=== PATIENT | male | born 1995 | race Caucasian/White ===

== ENCOUNTER 2022-04-19 18:20 | Emergency (ER) | payer OTHER ==
--- NOTE | 2022-04-19 20:06 | RAD REPORT ---
EXAM DESCRIPTION: CT - Head Brain Wo Cont - 04/19/2022 7:39 pm CLINICAL HISTORY: confusion, headache COMPARISON: No comparisons TECHNIQUE: Axial 5 mm thick images of the head were obtained without IV contrast. All CT scans are performed using dose optimization technique as appropriate and may include automated exposure control or mA/KV adjustment according to patient size. FINDINGS: No intracranial hemorrhage, mass, edema or shift of mid-line structures. No acute infarcti on changes seen. No abnormal extra-axial fluid collections. Ventricles are normal. Mastoid air cells and visualized portions of the paranasal sinuses are clear. No acute bony findings. IMPRESSION: Negative non-contrast CT head examination.
[2022-04-19 20:12] LABS: Absolute Lymphocytes (CBC) 3.1 K/uL (0.7-4.9); Hematocrit 48.2 % (39.6-49.0); Lymphocytes % 35.5 % (15.3-44.8); MCV 87.8 fL (80-100); MPV 7.3 fL (7.6-11.3); RBC Red Blood Cell Count 5.49 M/uL (4.33-5.43)
[2022-04-19 20:33] LABS: BUN Blood Urea Nitrogen 22 mg/dL (7-18); Bicarbonate 28 mmol/L (21-32); Glomerular Filtration Rate 64 ml/min (=/>90); Glucose Level 101 mg/dL (74-106); Potassium 3.7 mmol/L (3.5-5.1); Sodium Level 139 mmol/L (136-145)
[2022-04-19 20:37] LABS: Troponin High Sensitivity < 3.0 pg/mL (<58.9)
[2022-04-19] MEDS ORDERED: NA CHLORIDE 0.9% 1,000 ML ONE (21:02)
[2022-04-19 21:42] LABS: Urine Blood Negative (Negative); Urine Glucose Negative (Negative); Urine Protein Negative (Negative); Urine Specific Gravity >=1.030 (1.005-1.030)
--- NOTE | 2022-04-19 22:55 | ER ---
Nurse's Notes [facility] Name: Eric Gudino Age: 26 yrs Sex: Male : 1995 Arrival Date: 04/19/2022 Time: 18:22 Bed 1 Private MD: Diagnosis: Dehydration Presentation: 04/19 18:30 Chief complaint: Patient states: headaches, dizziness, weakness/disorientated x2 weeks. [facility] Coronavirus screen: Vaccine status: Patient reports being unvaccinated. Client denies travel out of the [place] in the last 14 days. Ebola Screen: Patient negative for fever greater than or equal to 101.5 degrees Fahrenheit, and additional compatible Ebola Virus Disease symptoms Patient denies exposure to infectious person. Patient denies travel to an Ebola-affected area in the 21 days before illness onset. Initial Sepsis Screen: Does the patient meet any 2 criteria? No. Patient's initial sepsis screen is negative. Does the patient have a suspected source of infection? No. Patient's initial sepsis screen is negative. Risk Assessment: Do you want to hurt yourself or someone else? Patient reports no desire to harm self or others. Onset of symptoms was April 2022. 18:30 Method Of Arrival: Ambulatory [facility] 18:30 Acuity: VÍCTOR 3 5 Triage Assessment: 18:34 General: Appears in no apparent distress. well groomed, well developed, Behavior is 5 calm, cooperative, appropriate for age. Pain: Denies pain. Historical: - Allergies: 18:34 No Known Allergies; [facility] - PMHx: 18:34 heartburn; [facility] - Immunization history:: Adult Immunizations up to date. - Social history:: Smoking status: Patient denies any tobacco usage or history of. Screenin:35 Abuse screen: Denies threats or abuse. Denies injuries from another. Nutritional [facility] screening: No deficits noted. Tuberculosis screening: No symptoms or risk factors identified. Fall Risk None identified. Vital Signs: 18:30 BP 134 / 85; Pulse 71; Resp 18; Temp 98.6; Pulse Ox 98% ; Weight 95.25 kg; Height 5 ft. 5 7 in. (170.18 cm); Pain 0/10; 18:30 Body Mass Index 32.89 (95.25 kg, 170.18 cm) jh5 ED Course: 18:22 Patient arrived in ED. mr 18:33 Triage completed. jh5 18:34 Arm band placed on right wrist. [facility] 18:35 Fran Appiah PA is PHCP. [facility] 18:35 Ephraim Valencia DO is Attending Physician. [facility] 19:41 CT Head Brain wo Cont In Process Unspecified. EDMS 20:57 Alina Pierre, RN is Primary Nurse. kd3 21:45 UDS Sent. vc1 22:54 Slim Santiago MD is Referral Physician. jmm 23:08 No provider procedures requiring assistance completed. IV discontinued, intact, kd3 bleeding controlled, No redness/swelling at site. Pressure dressing applied. 23:09 Patient has correct armband on for positive identification. kd3 Administered Medications: 20:57 Drug: NS 0.9% 1000 ml Route: IV; Rate: 1 bolus; Site: right antecubital; kd3 23:09 Follow up: Response: No adverse reaction; IV Status: Completed infusion kd3 Medication: 23:09 VIS not applicable for this client. kd3 Outcome: 22:54 Discharge ordered by . [facility] 23:08 Discharged to home ambulatory. kd3 23:08 Condition: stable 23:08 Discharge instructions given to patient, Instructed on discharge instructions, follow up and referral plans. Demonstrated understanding of instructions, follow-up care, Prescriptions given X 23:09 Patient left the ED. kd3 Signatures: Dispatcher [employer] EDMS Fran Appiah PA PA jmm Julio Bebe mr ElizaldeMariya RN RN [facility] Alina Pierre, KEVIN RN kd3 Isidra Ruffin RN RN vc1
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
[2022-04-20 00:54] LABS: Barbiturates NEGATIVE (NEGATIVE); Benzodiazepines NEGATIVE (NEGATIVE); Cocaine NEGATIVE (NEGATIVE); Methadone NEGATIVE (NEGATIVE); Opiates NEGATIVE (NEGATIVE); Phencyclidine NEGATIVE (NEGATIVE); THC Cannibis NEGATIVE (NEGATIVE)
[2022-04-20 00:55] LABS: METHAMPHETAM ND (NEGATIVE)
[2022-04-20 02:19] VITALS: BP 134/85; TEMP 98.6; O2SAT 98
--- NOTE | 2022-04-20 14:28 | EKG ---
Test Date: 2022-04-19 Test Time: 21:46:02 [employer]: DAWIT MEASUREMENT RESULTS: Intervals: Rate: 62 AL: 142 QRSD: 74 QT: 388 QTc: [address]: P: 24 AL: 142 QRS: 67 T: 25 INTERPRETIVE STATEMENTS: Normal sinus rhythm Septal infarct, age undetermined Abnormal ECG No previous ECG available for comparison Electronically Signed On 04-20-22 14:27:49 CDT by Tejas Thompson
== END 2022-04-19 23:09 | disposition home or self-care (01) ==
LOC: ER 18:20
DX: E86.0 Dehydration (principal)
CPT/HCPCS: 85025; 80048; 36415; 80320; 82550; 81003; 84484; 80307; 70450; J7030; 93005

== ENCOUNTER 2023-06-30 11:32 | Emergency (ER) | payer BC, OTHER ==
--- NOTE | 2023-06-30 12:36 | RAD REPORT ---
EXAM DESCRIPTION: RAD - Ribs Left - 06/30/2023 12:29 pm CLINICAL HISTORY: PAIN COMPARISON: <Comparisons> FINDINGS/IMPRESSION: Possible nondisplaced left posterolateral tenth rib fracture versus overlying s tructures. Correlate with site of pain. No pneumothorax. The lungs are clear bilaterally.
[2023-06-30] MEDS ORDERED: KETOROLAC 30 MG/ML INJ ONE (14:20)
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
[2023-06-30 14:38] VITALS: TEMP 97.3; O2SAT 97
== END 2023-06-30 14:33 | disposition home or self-care (01) ==
LOC: ER 11:32
DX: S22.32XA Fracture of one rib, left side, initial encounter for closed fracture (principal); F17.210 Nicotine dependence, cigarettes, uncomplicated
CPT/HCPCS: 96372; 99284

== ENCOUNTER 2024-11-13 14:18 | Emergency (ER) | payer BC, OTHER ==
[2024-11-13 15:12] LABS: Absolute Eosinophils 0.1 K/uL (0-0.5); Absolute Lymphocytes (CBC) 1.3 K/uL (0.7-4.9); Absolute Monocytes 0.5 K/uL (0.1-1.3); Absolute Neutrophil 5.2 K/uL (1.8-8.0); Basophils % 0.3 % (0-1.3); Eosinophils % 1.9 % (0-4.4); Hemoglobin 16.7 g/dL (13.6-17.9); Lymphocytes % 17.8 % (15.3-44.8); MCH 30.6 pg (27.0-35.0); MCHC 35.5 g/dL (32.0-36.0); MCV 86.4 fL (80-100); MPV 7.7 fL (7.6-11.3); Monocytes % 6.7 % (3.3-12.3); Neutrophils % 73.3 % (41.7-73.7); Nucleated Red Blood Cells % 0.1 % (0-0); Platelets 177 thou/uL (152-406); RBC Red Blood Cell Count 5.44 M/uL (4.33-5.43); Red Cell Distribution Width 13.1 % (12.1-15.2)
[2024-11-13] MEDS ORDERED: ONDANSETRON 4 MG/2 ML VIAL ONE (15:13)
[2024-11-13] MEDS ORDERED: FAMOTIDINE 20 MG/2 ML VIAL IV ONE (15:14)
[2024-11-13] MEDS ORDERED: NA CHLORIDE 0.9% 1,000 ML ONE (15:14)
[2024-11-13 15:35] LABS: Specific Gravity > 1.030 (1.005-1.030); Sqamous Epithelial None Seen /HPF (None Seen); Urine Bacteria <20 /HPF (<20); Urine Bilirubin NEGATIVE (Negative); Urine Blood Negative (Negative); Urine Clarity Clear (Clear); Urine Color Yellow (Yellow); Urine Culture Reflex Order NOT NEEDED; Urine Glucose NEGATIVE (Negative); Urine Ketones NEGATIVE (Negative); Urine Microscopic Reflex YN ORDER UMIC; Urine Mucus Slight /HPF (None Seen); Urine Nitrite NEGATIVE (Negative); Urine Protein 1+ (Negative); Urine RBC <5 /HPF (None Seen); Urine Urobilinogen Normal (Normal); Urine WBC <5 /HPF (<5); Urine Yeast (Budding) Trace /HPF (None Seen); Urine pH 6.5 (5.0-7.0)
[2024-11-13 15:35] LABS: Albumin/Globulin Ratio 1.1 (1.1-1.8); Bilirubin Total 0.5 mg/dL (0.2-1.0); Globulin 3.5 g/dL (2.3-3.5); Protein, Total 7.5 g/dL (6.4-8.2)
--- NOTE | 2024-11-13 15:36 | EDPHYS ---
Physician Documentation [facility] Name: Eric Gudino Age: 29 yrs Sex: Male : 1995 Arrival Date: 11/13/2024 Time: 14:18 Bed 17 Private MD: ED Physician Kam Vital HPI: 11/13 14:44 This 29 yrs old Male presents to ER via Unassigned with complaints of dr5 Nausea/Vomiting. 14:44 The patient presents to the emergency department with nausea, that is mild, vomiting, 1 dr5 times since the onset of symptoms, diarrhea, 2 times today. Onset: The symptoms/episode began/occurred acutely, at 13:30. Possible causes:. Patient is a 29-year-old male with history of GERD coming in with nausea and vomiting that started at 1:30 PM while eating sandwich. Patient reports having 1 episode of vomiting on the way here in EMS and is feeling much better afterwards. Patient denies current abdominal pain or nausea.. Historical: - Home Meds: 14:45 Omeprazole Oral [Active]; dr5 - PMHx: 14:45 Heartburn; dr5 - PSHx: 14:45 wrist - left; dr5 - Immunization history:: Adult Immunizations unknown. - Infectious Disease History:: Denies. - Social history:: Smoking status: Patient denies any tobacco usage or history of. ROS: 14:45 Constitutional: as per hpi dr5 Exam: 14:45 Constitutional: This is a well developed, well nourished patient who is awake, alert, dr5 and in no acute distress. Head/Face: Normocephalic, atraumatic. Eyes: Pupils equal round and reactive to light, extra-ocular motions intact. Lids and lashes normal. Conjunctiva and sclera are non-icteric and not injected. Cornea within normal limits. Periorbital areas with no swelling, redness, or edema. ENT: Nares patent. No nasal discharge, no septal abnormalities noted. Tympanic membranes are normal and external auditory canals are clear. Oropharynx with no redness, swelling, or masses, exudates, or evidence of obstruction, uvula midline. Mucous membranes moist. Chest/axilla: Normal chest wall appearance and motion. Nontender with no deformity. No lesions are appreciated. Cardiovascular: Regular rate and rhythm with a normal S1 and S2. Normal PMI, no JVD. No pulse deficits. Respiratory: Lungs have equal breath sounds bilaterally, clear to auscultation. No rales, rhonchi or wheezes noted. No increased work of breathing, no retractions or nasal flaring. Back: No spinal tenderness. No costovertebral tenderness. Full range of motion. Skin: Warm, dry with normal turgor. Normal color with no rashes, no lesions, and no evidence of cellulitis. 14:45 Neuro: Awake and alert, GCS 15, oriented to person, place, time, and situation. Cranial nerves II-XII grossly intact. Motor strength 5/5 in all extremities. Sensory grossly intact. Cerebellar exam normal. Normal gait. 14:45 Abdomen/GI: Inspection: abdomen appears normal, Palpation: abdomen is soft and non-tender, in all quadrants, Vital Signs: 14:15 BP 133 / 80; Pulse 98; Resp 18; Temp 98.2; Pulse Ox 100% ; Weight 106.59 kg; Height 5 kj2 ft. 7 in. ; 15:15 BP 121 / 77; Pulse 96; Resp 20; Pulse Ox 100% on R/A; kj2 16:15 BP 106 / 76; Pulse 87; Resp 16; Pulse Ox 95% ; db 14:15 Body Mass Index 36.81 (106.59 kg, 170.18 cm) kj2 MDM: 14:44 Medical Screening Exam initiated dr5 16:29 Differential diagnosis: Nonspecific abd pain, gastritis, viral gastroenteritis, dr5 gastroenteritis. Data reviewed: vital signs, nurses notes. I considered the following discharge prescriptions or medication management in the emergency department Medications were administered in the Emergency Department. See MAR. Care significantly affected by the following chronic conditions: GERD. Care significantly affected by the following Social Determinants of Health: Poor access to healthcare and/or lack of insurance, Poor access to transportation, Problems related to employment. Counseling: I had a detailed discussion with the patient and/or guardian regarding the historical points, exam findings, and any diagnostic results supporting the discharge/admit diagnosis, the presence of at least one elevated blood pressure reading (>120/80) during this emergency department visit, lab results, the need for outpatient follow up, for definitive care, a family practitioner, to return to the emergency department if symptoms worsen or persist or if there are any questions or concerns that arise at home. ED course: Patient reports that he is feeling much better and abdominal pain and nausea has resolved. Patient states he will go to his work outpatient clinic for clearance. I printed out labs and placed in discharge paperwork to take with him. All questions answered. Zofran sent for reoccurring nausea. Strict ER precautions.. 11/13 14:44 Order name: CBC with Diff; Complete Time: 15:22 [facility] 11/13 14:44 Order name: CMP; Complete Time: 15:35 [facility] 11/13 14:44 Order name: Lipase; Complete Time: 15:35 [facility] 11/13 14:44 Order name: Urinalysis w/ reflexes; Complete Time: 15:35 [facility] 11/13 14:44 Order name: IV Saline Lock; Complete Time: 15:05 [facility] 11/13 14:44 Order name: Labs collected and sent; Complete Time: 15:05 [facility] Administered Medications: 15:20 Drug: Famotidine IVP 20 mg IVP once; dilute with 10 mL 0.9% NaCl; give over 2 minutes kj2 Route: IVP; Site: right antecubital; 16:21 Follow up: Response: No adverse reaction db 15:20 Drug: Ondansetron IVP 4 mg IVP once; over 2 minutes Route: IVP; Site: right antecubital;kj2 16:21 Follow up: Response: No adverse reaction db 15:20 Drug: NS 0.9% IV 1000 ml IV at 1 bolus Per protocol; to be given as a bolus over 60 kj2 minutes Route: IV; Rate: 1 bolus; Site: right antecubital; 16:21 Follow up: Response: No adverse reaction; IV Status: Completed infusion; IV Intake: db 1000ml Disposition Summary: 11/13/24 15:36 Discharge Ordered Notes: Location: Home dr5 Condition: Stable dr5 Diagnosis - Nausea with vomiting, unspecified dr5 Followup: dr5 - With: Emergency Department - When: As needed - Reason: Worsening of condition Followup: dr5 - With: Private Physician - When: 1 - 2 days - Reason: Recheck today's complaints, Continuance of care, Re-evaluation by your physician Discharge Instructions: - Discharge Summary Sheet dr5 - Nausea and Vomiting, Adult dr5 Forms: - Medication Reconciliation Form dr5 - Patient Portal Instructions dr5 - Leadership Thank You Letter dr5 Prescriptions: - Zofran 4 mg Oral Tablet - take 1 tablet ORAL route every 12 hours As needed; 20 tablet; Refills: 0, dr5 Product Selection Permitted Addendum: 11/14/2024 21:48 I was immediately available for consultation during this patient's visit. I did not e c2 personally see the patient or discuss the patient with the MARTINEZ. . Signatures: Dispatcher [employer] EDMS Kam Vital MD MD ec2 Griselda Hamm RN RN kj2 Walter Santoyo, RUG REPAIRER-C RUG REPAIRER-5 Shelbi Duff RN db Corrections: (The following items were deleted from the chart) 11/13 14:44 14:44 CBC+H.LAB.BRZ ordered. EDMS EDMS 14:44 14:44 COMPREHENSIVE METABOLIC PANEL+C.LAB.BRZ ordered. EDMS EDMS 14:44 14:44 LIPASE+C.LAB.BRZ ordered. EDMS EDMS 14:44 14:44 Urinalysis+U.LAB.BRZ ordered. EDMS EDMS
--- NOTE | 2024-11-13 15:36 | ER ---
Nurse's Notes [facility] Name: Eric Gudino Age: 29 yrs Sex: Male : 1995 Arrival Date: 11/13/2024 Time: 14:18 Bed 17 Private MD: Diagnosis: Nausea with vomiting, unspecified Presentation: 11/13 14:15 Chief complaint: EMS states: nausea/vomiting. Coronavirus screen: Client denies travel kj2 out of the [place] in the last 14 days. Ebola Screen: No symptoms or risks identified at this time. Initial Sepsis Screen: Does the patient meet any 2 criteria? No. Patient's initial sepsis screen is negative. Does the patient have a suspected source of infection? No. Patient's initial sepsis screen is negative. Risk Assessment: Do you want to hurt yourself or someone else? Patient reports no desire to harm self or others. Onset of symptoms was November 13, 2024. 14:15 Method Of Arrival: EMS: [facility] kj2 14:15 Acuity: VÍCTOR 3 kj2 Triage Assessment: 14:46 General: Appears in no apparent distress. Behavior is calm, cooperative. Pain: Denies kj2 pain. Neuro: Level of Consciousness is awake, alert, obeys commands, Oriented to person, place, time. Cardiovascular: Patient's skin is warm and dry. Respiratory: Airway is patent. GI: Reports nausea. : No signs and/or symptoms were reported regarding the genitourinary system. Historical: - Home Meds: 14:45 Omeprazole Oral [Active]; dr5 - PMHx: 14:45 Heartburn; dr5 - PSHx: 14:45 wrist - left; dr5 - Immunization history:: Adult Immunizations unknown. - Infectious Disease History:: Denies. - Social history:: Smoking status: Patient denies any tobacco usage or history of. Screenin:15 [facility] ED Fall Risk Assessment (Adult) History of falling in the last 3 months, kj2 including since admission No falls in past 3 months (0 pts) Confusion or Disorientation No (0 pts) Intoxicated or Sedated No (0 pts) Impaired Gait No (0 pts) Mobility Assist Device Used No (0 pt) Altered Elimination No (0 pt) Score/Fall Risk Level 0 - 2 = Low Risk Maintained a safe environment, Hourly rounding (assess needs \T\ fall precautionary measures) done. Abuse screen: Denies threats or abuse. Denies injuries from another. Nutritional screening: No deficits noted. Tuberculosis screening: No symptoms or risk factors identified. Assessment: 14:15 General: see triage assessment. kj2 15:15 Reassessment: Patient appears in no apparent distress at this time. Patient and/or kj2 family updated on plan of care and expected duration. Pain level reassessed. Patient is alert, oriented x 3, equal unlabored respirations, skin warm/dry/pink. 15:45 Reassessment: discharge once fluids are finished. kj2 16:21 Reassessment: Patient appears in no apparent distress at this time. Patient and/or db family updated on plan of care and expected duration. Pain level reassessed. Patient is alert, oriented x 3, equal unlabored respirations, skin warm/dry/pink. Vital Signs: 14:15 BP 133 / 80; Pulse 98; Resp 18; Temp 98.2; Pulse Ox 100% ; Weight 106.59 kg; Height 5 kj2 ft. 7 in. ; 15:15 BP 121 / 77; Pulse 96; Resp 20; Pulse Ox 100% on R/A; kj2 16:15 BP 106 / 76; Pulse 87; Resp 16; Pulse Ox 95% ; db 14:15 Body Mass Index 36.81 (106.59 kg, 170.18 cm) kj2 ED Course: 14:15 Arm band placed on Patient placed in an exam room, on a stretcher. kj2 14:15 Patient has correct armband on for positive identification. Provided Education on: call kj2 light. 14:42 Patient arrived in ED. bc6 14:43 Walter Santoyo FNP-C is [facility]. dr5 14:43 Kam Vital MD is Attending Physician. dr5 14:43 Griselda Hamm RN is Primary Nurse. kj2 14:45 Inserted saline lock: 20 gauge in right antecubital area, using aseptic technique. kj2 Blood collected. Flushed with 10 mL NS. 14:46 Triage completed. kj2 16:21 No provider procedures requiring assistance completed. IV discontinued, intact, db bleeding controlled, No redness/swelling at site. Administered Medications: 15:20 Drug: Famotidine IVP 20 mg IVP once; dilute with 10 mL 0.9% NaCl; give over 2 minutes kj2 Route: IVP; Site: right antecubital; 16:21 Follow up: Response: No adverse reaction db 15:20 Drug: Ondansetron IVP 4 mg IVP once; over 2 minutes Route: IVP; Site: right antecubital;kj2 16:21 Follow up: Response: No adverse reaction db 15:20 Drug: NS 0.9% IV 1000 ml IV at 1 bolus Per protocol; to be given as a bolus over 60 kj2 minutes Route: IV; Rate: 1 bolus; Site: right antecubital; 16:21 Follow up: Response: No adverse reaction; IV Status: Completed infusion; IV Intake: db 1000ml Medication: 16:21 VIS not applicable for this client. db Intake: 16:21 IV: 1000ml; Total: 1000ml. db Outcome: 15:36 Discharge ordered by MD. dr5 16:21 Discharged to home ambulatory, with family, db 16:21 Condition: stable 16:21 Discharge instructions given to patient, Instructed on discharge instructions, follow up and referral plans. Prescriptions given X 1, 16:22 Patient left the ED. db Signatures: Shelbi Duff, RN RN db Myah Guzman bc6 Griselda Hamm, RN RN kj2 Walter Santoyo, ANIMAL THERAPIST-C ANIMAL THERAPIST-Cdr5
[2024-11-13 16:38] VITALS: BP 106/76; O2SAT 95
== END 2024-11-13 16:22 | disposition home or self-care (01) ==
LOC: ER 14:18
DX: R11.2 Nausea with vomiting, unspecified (principal)
CPT/HCPCS: 96361; 85025; 81001; 36415; 83690; 80053; 96375; 96374; 99284; J2405; J7030